=== PATIENT | male | born 1995 | race Asian ===

== ENCOUNTER 2019-01-11 10:34 | Emergency (ER) | payer BC ==
[~2019-01-11] VITALS: Ht 160 cm; Wt 59.1 kg
[2019-01-11] MEDS ORDERED: PERTUSS(ACELL),DIPH,TET VAC/PF 0.5 ML VIAL IM ONE (12:30)
[2019-01-11] MEDS ORDERED: LIDOCAINE 1% 10 ML VIAL INJ ONE (12:30)
[2019-01-11] MEDS ORDERED: POVIDONE-IODINE 10% 15 ML SOLUTION UD TP ONE (12:30)
[2019-01-11 13:19] VITALS: BP 110/89
== END 2019-01-11 13:45 | disposition home or self-care (01) ==
LOC: EMS 10:37
DX: L02.511 Cutaneous abscess of right hand (principal)
CPT/HCPCS: 26010; 90471; 90715; 99283; J3490